=== PATIENT | female | born 1960 | race Caucasian/White ===

== ENCOUNTER → 2018-02-23 | Outpatient (CLI) | payer BC | LOC: RAD 08:53 | DX: R22.1 Localized swelling, mass and lump, neck (principal) ==

== ENCOUNTER → 2018-03-03 | Outpatient (CLI) | payer BC | LOC: RAD 08:22 | DX: K76.89 Other specified diseases of liver (principal); R31.21 Asymptomatic microscopic hematuria | CPT/HCPCS: Q9967 ==

== ENCOUNTER → 2018-07-19 | Outpatient (CLI) | payer BC | LOC: RAD 09:30 | DX: R16.0 Hepatomegaly, not elsewhere classified (principal); K76.89 Other specified diseases of liver ==

== ENCOUNTER → 2019-07-26 | Outpatient (CLI) | payer BC | LOC: RAD 07:55 | DX: D18.09 Hemangioma of other sites (principal) ==